=== PATIENT | female | born 1990 | race Caucasian/White ===

== ENCOUNTER 2019-05-17 13:53 | Emergency (ER) | payer OTHER ==
[~2019-05-17] VITALS: Ht 170.2 cm; Wt 65.8 kg
[2019-05-17] MEDS ORDERED: PHENY100ER PO ×2 (14:12→14:18)
== END 2019-05-17 14:20 | disposition home or self-care (01) ==
LOC: ER 13:53
DX: S01.01XD Laceration without foreign body of scalp, subsequent encounter (principal); Z76.0 Encounter for issue of repeat prescription; Z88.8 Allergy status to other drugs, medicaments and biological substances; Z79.899 Other long term (current) drug therapy; F17.210 Nicotine dependence, cigarettes, uncomplicated; G40.909 Epilepsy, unspecified, not intractable, without status epilepticus
CPT/HCPCS: 99281

== ENCOUNTER 2019-05-24 18:14 | Emergency (ER) | payer OTHER ==
[~2019-05-24] VITALS: Ht 170.2 cm; Wt 65.8 kg
[~2019-05-24 18:14] MED LIST: PHENY100ER PO
[2019-05-24] MEDS ORDERED: Dilantin 100 m100 MG PO (18:36)
== END 2019-05-24 18:39 | disposition home or self-care (01) ==
LOC: ER 18:14
DX: Z76.0 Encounter for issue of repeat prescription (principal); G40.909 Epilepsy, unspecified, not intractable, without status epilepticus; F17.210 Nicotine dependence, cigarettes, uncomplicated; Z88.6 Allergy status to analgesic agent; Z79.899 Other long term (current) drug therapy
CPT/HCPCS: 99281